=== PATIENT | male | born 1985 | race Caucasian/White ===

== ENCOUNTER 2024-10-31 10:45 | Emergency (ER) | payer MEDICAID ==
[~2024-10-31] VITALS: Ht 180.3 cm; Wt 72.7 kg
[2024-10-31 11:00] VITALS: TEMP 98.1
[2024-10-31 12:30] VITALS: BP 133/84; PULSE 78; RESP 16; O2SAT 98
[2024-10-31] MEDS: CLINDAMYCIN PHOS 150 MG/ML 4 ML VIAL IM ONE (13:20)
[2024-10-31] MEDS: LIDOCAINE 1% 10 ML VIAL SQ ONE (13:21)
[2024-10-31] MEDS: TraMADol HCL 50 MG TABLET PO ONE (13:21)
[2024-10-31] MEDS ORDERED: CLIN-142 PO (15:08)
== END 2024-10-31 15:23 | disposition home or self-care (01) ==
LOC: EMS 10:45
DX: L02.214 Cutaneous abscess of groin (principal); F14.90 Cocaine use, unspecified, uncomplicated; X58.XXXA Exposure to other specified factors, initial encounter
CPT/HCPCS: 99283; 10060; 96372; J3490 ×2

== ENCOUNTER 2024-11-02 12:15 | Emergency (ER) | payer MEDICAID ==
[~2024-11-02] VITALS: Ht 180.3 cm; Wt 72.7 kg
[~2024-11-02 12:15] MED LIST: CLIN-142 PO
[2024-11-02 12:28] VITALS: BP 123/77; PULSE 96; RESP 20; TEMP 97.3; O2SAT 100
[2024-11-02] MEDS ORDERED: CEPH-558 PO (14:07)
[2024-11-02] MEDS ORDERED: HYDR-4062 PO (14:07)
[2024-11-02] MEDS ORDERED: IBUP-1554 PO (14:07)
== END 2024-11-02 14:17 | disposition home or self-care (01) ==
LOC: EMS 12:16
DX: L02.214 Cutaneous abscess of groin (principal); F14.90 Cocaine use, unspecified, uncomplicated; Z48.00 Encounter for change or removal of nonsurgical wound dressing; Z79.899 Other long term (current) drug therapy
CPT/HCPCS: 99283; Z7502

== ENCOUNTER 2024-11-05 12:20 | Emergency (ER) | payer MEDICAID ==
[~2024-11-05] VITALS: Ht 180.3 cm; Wt 72.7 kg
[~2024-11-05 12:20] MED LIST changes: +CEPH-558 PO; +HYDR-4062 PO; +IBUP-1554 PO
[2024-11-05 12:22] VITALS: TEMP 97.7
[2024-11-05 14:50] VITALS: BP 121/88; PULSE 98; RESP 16; O2SAT 98
== END 2024-11-05 15:10 | disposition home or self-care (01) ==
LOC: EMS 12:20
DX: L02.214 Cutaneous abscess of groin (principal); F12.90 Cannabis use, unspecified, uncomplicated; F14.90 Cocaine use, unspecified, uncomplicated
CPT/HCPCS: 99281; 99282; Z7502